=== PATIENT | male | born 1990 | race Caucasian/White ===

== ENCOUNTER 2021-12-29 09:48 | Outpatient (CLI) | payer MEDICARE, MEDICAID | END 2021-12-29 09:49 | disposition home or self-care (01) | LOC: RAD 09:48 | PROVIDERS: ATTEND Internal Medicine | DX: K56.699 Other intestinal obstruction unspecified as to partial versus complete obstruction (principal); K63.3 Ulcer of intestine; R93.3 Abnormal findings on diagnostic imaging of other parts of digestive tract; K63.89 Other specified diseases of intestine | CPT/HCPCS: 74018 ==